=== PATIENT | female | born 1960 | race Caucasian/White ===

== ENCOUNTER 2017-10-24 14:28 | Emergency (ER) | payer MEDICARE, OTHER ==
[~2017-10-24] VITALS: Ht 154.9 cm; Wt 100.0 kg
[~2017-10-24 14:28] MED LIST: ADVAI100I PO; ALBU8I INH; CEPH500C3 PO; CETI5SOL PO; DUONI NEB; MONT10TA2 PO; OMEP40CA2 PO; PRAV10 PO; SPIRCAP INH; XANA1TAB PO
[2017-10-24 14:44] VITALS: BP 149/71; PULSE 66; RESP 18; TEMP 97.9; O2SAT 95
[2017-10-24] MEDS ORDERED: DIFL100T PO (15:05)
[2017-10-24] MEDS ORDERED: PRAV10TA PO (15:05)
[2017-10-24] MEDS ORDERED: FLUT1SPR5 EACH NARE (15:05)
[2017-10-24] MEDS ORDERED: ADVA100A INH (15:05)
[2017-10-24] MEDS ORDERED: LORA-400 PO (15:05)
[2017-10-24] MEDS ORDERED: ZITH250T PO (15:05)
[2017-10-24] MEDS ORDERED: MEDR4PAK PO (15:05)
[2017-10-24] MEDS ORDERED: SPIRCAP INH (15:05)
[2017-10-24] MEDS ORDERED: BENZ100 PO (15:54)
[2017-10-24] MEDS ORDERED: HUMIBIDDM PO (15:54)
--- NOTE | 2017-10-24 15:54 | PD ---
HPI Chief Complaint: Cold / Flu Symptoms Time Seen by Provider: 15:25 Travel History International Travel<30 days: No Contact w/Intl Traveler<30days: No Traveled to known affect area: No History of Present Illness HPI 57-year-old female presents emergency department for evaluation of cough and congestion for the past 2 weeks. Patient states that she recently finished a course of steroids azithromycin for bronchitis, she states that the iOmando is the only thing that has worked for her in the past. Denies any fevers denies any shortness of breath or chest pain. States symptoms have been stable but she coughed up a large chunk of mucus just before I saw her and states that she had felt a little bit better. Symptoms are mild, for the past 2 weeks, waxing and waning, context a smoker PFSH Past Medical History Cancer: No Cardiovascular Problems: No High Cholesterol: Yes COPD: Yes Diabetes: No Diminished Hearing: No Endocrine: No Genitourinary: No (URGENCY) Hepatitis: No Hiatal Hernia: No Immune Disorder: No Musculoskeletal: No Neurologic: No Psychiatric: No Respiratory: Yes (COPD) Thyroid Disease: No Influenza Vaccination: Yes ?: Not Menopausal: Yes : 2 Para: 2 Tubal Ligation: Yes Past Surgical History Abdominal Surgery: No AICD: No Cardiac Surgery: No Section: Yes Ear Surgery: No Endocrine Surgery: No Eye Surgery: No Genitourinary Surgery: Yes (C SECTION X2) Gynecologic Surgery: Yes (C-SECTIONS X2) Joint Replacement: No Oral Surgery: No Pacemaker: No Thoracic Surgery: No Other Surgery: Yes Social History Alcohol Use: No Tobacco Use: Yes (2ppd) Substance Use: Yes (marijuana) Allergies-Medications (Allergen,Severity, Reaction): Coded Allergies: No Known Allergies (Unverified Adverse Reaction, Unknown, 10/24/17) Reported Meds & Prescriptions Reported Meds & Active Scripts Active Tessalon Perles (Benzonatate) 100 Mg Cap 100 Mg PO TID PRN Mucinex DM (Dextromethorphan-Guaifenesin) 30-600 Mg Tab 1 Tab PO BID PRN Reported Pravastatin 10 Mg Tab 10 Mg PO DAILY Advair Diskus Inh (Fluticasone-Salmeterol Inh) 100-50 Mcg/Blist Aer 1 Puff INH BID Rinse mouth after use. Spiriva Handihaler (Tiotropium Inh) 18 Mcg Cap 18 Mcg INH DAILY 1 capsule = 18 mcg Claritin-D 24 HR (Loratadine-Pseudoephedrine 24 HR) 10-240 Mg Tab 1 Tab PO DAILY Flonase Nasal [place] (Fluticasone Nasal [place]) 50 Mcg/Act [place] 100 Mcg EACH NARE BID Diflucan (Fluconazole) 100 Mg Tab 100 Mg PO ONCE Medrol Dosepak (Methylprednisolone) 4 Mg Dspk 4 Mg PO DIRECTED Per Pharmacist direction Zithromax (Azithromycin) 250 Mg Tab 250 Mg PO DIRECTED Take 2 tabs (500 mg) on day 1 then 1 tab daily x 4 days. Review of Systems Except as stated in HPI: all other systems reviewed are Neg Physical Exam Narrative GENERAL: Well-nourished, well-developed patient. SKIN: Focused skin assessment warm/dry. HEAD: Normocephalic. EYES: No scleral icterus. No injection or drainage. ENT: TMs clear bilaterally, oropharynx clear moist NECK: Supple, trachea midline. No JVD or lymphadenopathy. CARDIOVASCULAR: Regular rate and rhythm without murmurs, gallops, or rubs. RESPIRATORY: Breath sounds equal bilaterally. No accessory muscle use. GASTROINTESTINAL: Abdomen soft, non-tender, nondistended. MUSCULOSKELETAL: No cyanosis, or edema. BACK: Nontender without obvious deformity. No CVA tenderness. Data Data Last Documented VS Vital Signs Date Time Temp Pulse Resp B/P (MAP) Pulse Ox O2 Delivery O2 Flow Rate FiO2 10/24/17 16:33 70 16 100 10/24/17 14:44 97.9 149/71 (97) Orders Orders Ed Discharge Order (10/24/17 15:54) MDM Medical Decision Making Medical Screen Exam Complete: Yes Emergency Medical Condition: Yes Differential Diagnosis Bronchitis, pneumonia unlikely, URI Narrative Course Patient room to the emergency department. She appears well and in obvious distress. Symptomatic management return to criteria smoking cessation and follow-up with a primary care physician were all discussed Diagnosis Primary Impression: Cough Med/Other Pt SpecificInfo: Prescription(s) given Scripts Benzonatate (Tessalon Perles) 100 Mg Cap 100 MG PO TID Y for COUGH, #20 CAP 0 Refills Prov: Marvin Mejia MD 10/24/17 Dextromethorphan-Guaifenesin (Mucinex DM) 30-600 Mg Tab 1 TAB PO BID Y for CHEST CONGESTION AND/OR COUGH, #30 TAB 0 Refills Prov: Marvin Mejia MD 10/24/17 Disposition: 01 DISCHARGE HOME Condition: Stable Marvin Mejia MD Oct 24, 2017 15:54
== END 2017-10-24 16:33 | disposition home or self-care (01) ==
LOC: PHEFT 14:28
DX: J44.9 Chronic obstructive pulmonary disease, unspecified (principal); E78.00 Pure hypercholesterolemia, unspecified; F17.210 Nicotine dependence, cigarettes, uncomplicated; Z79.899 Other long term (current) drug therapy
CPT/HCPCS: 99283

== ENCOUNTER 2018-01-09 20:21 | Inpatient (IN) | payer MEDICARE, OTHER ==
[2018-01-09] VITALS (14 sets, daily range): BP systolic 139–171; BP diastolic 74–97; PULSE 120–132; RESP 30–34; TEMP 98.4; O2SAT 56–100
[~2018-01-09] VITALS: Ht 157.5 cm; Wt 94.9 kg
[~2018-01-09 20:21] MED LIST changes: +ADVA100A INH; -ADVAI100I PO; -ALBU8I INH; +BENZ100 PO; -CEPH500C3 PO; -CETI5SOL PO; +DIFL100T PO; -DUONI NEB; +FLUT1SPR5 EACH NARE; +HUMIBIDDM PO; +LORA-400 PO; +MEDR4PAK PO; -MONT10TA2 PO; -OMEP40CA2 PO; -PRAV10 PO; +PRAV10TA PO; -XANA1TAB PO; +ZITH250T PO
[2018-01-09] MEDS ORDERED: ALPR1TAB3 PO (20:38)
[2018-01-09] MEDS: RESP: ALBUTEROL 2.5 MG/IPRATROPIUM 0.5 MG NEB (SCH) INH ×3 (20:41→21:23)
--- NOTE | 2018-01-09 20:42 | PD ---
HPI Chief Complaint: Respiratory Distress Time Seen by Provider: 20:32 Travel History International Travel<30 days: No Contact w/Intl Traveler<30days: No Traveled to known affect area: No History of Present Illness HPI The patient is a 57 year old female who presents to the [facility] emergency department with a history of cough, congestion that began on Monday. The patient reports that over the last 2 days she has had increasing shortness of breath with more frequent use of her rescue inhaler and nebulizer machine. The patient has had a subjective fever, and her cough became productive of yellow sputum earlier today. She reports that she quit smoking on Monday. The patient reports that she does have a history of COPD. The patient is followed by the visual stylist, Dr. Elliott. Her primary care physician is Dr. Redding. She reports that she was started on a Z-Dann by a walk-in clinic on Monday. She denies being on any oral steroids. The patient on arrival to the room after coming to the emergency department by private vehicle is noted to have room air saturations of 56% with a heart rate in the 130s that appears to be a sinus tachycardia on the monitor. She denies having any chest pain. On review of systems, the patient denies having any neck pain, abdominal pain, vomiting, diarrhea, urinary symptoms, or neurologic symptoms. [facility] Past Medical History Narrative Medical The patient's past medical history is significant for COPD, hyperlipidemia. Cancer: No Cardiovascular Problems: No High Cholesterol: Yes COPD: Yes Diabetes: No Diminished Hearing: No Endocrine: No Genitourinary: No (URGENCY) Hepatitis: No Hiatal Hernia: No Immune Disorder: No Musculoskeletal: No Neurologic: No Psychiatric: No Respiratory: Yes (COPD) Thyroid Disease: No Menopausal: Yes : 2 Para: 2 Tubal Ligation: Yes Past Surgical History Narrative Surgical The patient's past surgical history is significant for C-sections x2. Abdominal Surgery: No AICD: No Cardiac Surgery: No Section: Yes Ear Surgery: No Endocrine Surgery: No Eye Surgery: No Genitourinary Surgery: Yes (C SECTION X2) Gynecologic Surgery: Yes (C-SECTIONS X2) Joint Replacement: No Oral Surgery: No Pacemaker: No Thoracic Surgery: No Other Surgery: Yes Social History Alcohol Use: No Tobacco Use: No (quit smoking on Monday, 3 days ago.) Substance Use: Yes (marijuana) Allergies-Medications (Allergen,Severity, Reaction): Coded Allergies: No Known Allergies (Unverified Allergy, Unknown, 01/10/18) Reported Meds & Prescriptions Reported Meds & Active Scripts Active Mucinex DM (Dextromethorphan-Guaifenesin) 30-600 Mg Tab 1 Tab PO BID PRN Reported Alprazolam 1 Mg Tab 10 Mg PO QID PRN Pravastatin 10 Mg Tab 10 Mg PO DAILY Advair Diskus Inh (Fluticasone-Salmeterol Inh) 100-50 Mcg/Blist Aer 1 Puff INH BID Rinse mouth after use. Spiriva Handihaler (Tiotropium Inh) 18 Mcg Cap 18 Mcg INH DAILY 1 capsule = 18 mcg Claritin-D 24 HR (Loratadine-Pseudoephedrine 24 HR) 10-240 Mg Tab 1 Tab PO DAILY Flonase Nasal [place] (Fluticasone Nasal [place]) 50 Mcg/Act [place] 100 Mcg EACH NARE BID Zithromax (Azithromycin) 250 Mg Tab 250 Mg PO DIRECTED Take 2 tabs (500 mg) on day 1 then 1 tab daily x 4 days. Review of Systems Except as stated in HPI: all other systems reviewed are Neg General / Constitutional: Positive: Fever, Chills Eyes: No: Visual changes HENT: Positive: Rhinorrhea, Congestion, No: Headaches Cardiovascular: Positive: Dyspnea on exertion, No: Chest Pain or Discomfort Respiratory: Positive: Cough, Shortness of Breath, Wheezing Gastrointestinal: No: Nausea, Vomiting, Diarrhea, Abdominal Pain Genitourinary: No: Dysuria Musculoskeletal: No: Pain Skin: No Rash Neurologic: No: Weakness Psychiatric: No: Depression Endocrine: No: Polydipsia Hematologic/Lymphatic: No: Easy Bruising Physical Exam Narrative General: The patient is a well-developed well-nourished female who arrives short of breath with accessory muscle use noted, conversational dyspnea noted, tripoding noted. The patient has already been started on a nonrebreather mask for hypoxia on room air with an O2 saturation on room air at 56%. Head and Neck exam: Head is normocephalic atraumatic. Eyes: EOMI, pupils are equal round and reactive to light. Nose: Midline septum with pink mucous membranes Mouth: Dentition unremarkable. Moist mucus membranes. Posterior oropharynx is not erythematous. No tonsillar hypertrophy. Uvula midline. Airway patent. Neck: No palpable lymphadenopathy. No nuchal rigidity. No thyromegaly. Cardiovascular: Sinus tachycardia in the 1 teens to 120 without murmurs, gallops, or rubs. No pulse deficit to the extremities on simultaneous auscultation and palpation of her radial artery. Lungs: Decreased air movement bilaterally with expiratory wheezes noted and prolonged expiratory phase of breathing. The patient has accessory muscle use noted, tripoding, no paroxysmal abdominal breathing. The patient has scattered rhonchi with frequent coughing noted. No crackles audible. Decreased breath sounds in bilateral lung bases due to poor air movement. Abdomen: Soft, without tenderness to palpation in all 4 quadrants of the abdomen. No guarding, rebound, or rigidity. Normal bowel sounds are audible. No tenderness on palpation of McBurney's point. Negative Espinoza sign. Extremities: No clubbing, cyanosis, or edema. 2+ pulses in all 4 extremities. No calf tenderness on palpation peer Back: No costovertebral angle tenderness to palpation. Neurologic Exam: Grossly nonfocal. Skin Exam: No rash noted. Intact skin that is warm and dry. Data Data Last Documented VS Vital Signs Date Time Temp Pulse Resp B/P (MAP) Pulse Ox O2 Delivery O2 Flow Rate FiO2 01/09/18 22:50 100 Non-Rebreather 15.00 01/09/18 22:09 50 01/09/18 22:00 130 32 01/09/18 20:30 98.4 Orders Orders Complete Blood Count With Diff (01/09/18 20:32) Comprehensive Metabolic Panel (01/09/18 20:32) B-Type Natriuretic Peptide (01/09/18 20:32) D-Dimer (01/09/18 20:32) Act Partial Throm Time (Ptt) (01/09/18 20:32) Prothrombin Time / Inr (Pt) (01/09/18 20:32) Magnesium (Mg) (01/09/18 20:32) Ckmb (Isoenzyme) Profile (01/09/18 20:32) Troponin I (01/09/18 20:32) Urinalysis - C+S If Indicated (01/09/18 20:32) Influenzae A/B Antigen (01/09/18 20:32) Blood Culture (01/09/18 20:32) Iv Access Insert/Monitor (01/09/18 20:32) Electrocardiogram (01/09/18 20:32) Ecg Monitoring (01/09/18 20:32) Oximetry (01/09/18 20:32) Oxygen Administration (01/09/18 20:32) Chest, Single Ap (01/09/18 20:32) Sodium Chloride 0.9% Flush (Ns Flush) (01/09/18 20:45) Methylprednisolone So Succ Inj (Solumedr (01/09/18 20:45) Albuterol-Ipratropium Neb (Duoneb Neb) (01/09/18 20:45) Resp Bipap / Cpap Non Invas Vt (01/09/18 ) Albuterol-Ipratropium Neb (Duoneb Neb) (01/09/18 21:30) Levofloxacin 750 Mg Premix Inj (Levaquin (01/09/18 21:30) Lactic Acid Sepsis Protocol (01/09/18 21:19) Sodium Chlorid 0.9% 500 Ml Inj (Ns 500 M (01/09/18 21:30) Lorazepam Inj (Ativan Inj) (01/09/18 21:30) CKMB (01/09/18 20:30) CKMB% (01/09/18 20:30) Arterial Blood Gas (Abg) (01/09/18 21:49) Ct Pulmonary Angiogram (01/09/18 22:29) Iohexol 350 Inj (Omnipaque 350 Inj) (01/09/18 23:10) Admit Order (Ed Use Only) (01/09/18 23:17) Labs Laboratory Tests Test 01/09/18 20:30 01/09/18 21:35 01/09/18 21:49 White Blood Count 20.3 TH/MM3 Red Blood Count 4.44 MIL/MM3 Hemoglobin 13.6 GM/DL Hematocrit 40.1 % Mean Corpuscular Volume 90.3 FL Mean Corpuscular Hemoglobin 30.6 PG Mean Corpuscular Hemoglobin Concent 33.8 % Red Cell Distribution Width 13.1 % Platelet Count 378 TH/MM3 Mean Platelet Volume 8.6 FL Neutrophils (%) (Auto) 78.6 % Lymphocytes (%) (Auto) 8.8 % Monocytes (%) (Auto) 11.0 % Eosinophils (%) (Auto) 1.0 % Basophils (%) (Auto) 0.6 % Neutrophils # (Auto) 15.9 TH/MM3 Lymphocytes # (Auto) 1.8 TH/MM3 Monocytes # (Auto) 2.2 TH/MM3 Eosinophils # (Auto) 0.2 TH/MM3 Basophils # (Auto) 0.1 TH/MM3 CBC Comment AUTO DIFF Differential Total Cells Counted 100 Neutrophils % (Manual) 76 % Band Neutrophils % 2 % Lymphocytes % 11 % Monocytes % 9 % Eosinophils % 1 % Neutrophils # (Manual) 16.0 TH/MM3 Metamyelocytes 1 % Differential Comment FINAL DIFF MANUAL Platelet Estimate NORMAL Platelet Morphology Comment NORMAL Basophilic Stippling FAINT Prothrombin Time 10.3 SEC Prothromb Time International Ratio 1.0 RATIO Activated Partial Thromboplast Time 34.1 SEC D-Dimer Quantitative (PE/DVT) 0.94 MG/L FEU Blood Urea Nitrogen 7 MG/DL Creatinine 0.75 MG/DL Random Glucose 89 MG/DL Total Protein 8.2 GM/DL Albumin 3.4 GM/DL Calcium Level 9.1 MG/DL Magnesium Level 2.4 MG/DL Alkaline Phosphatase 155 U/L Aspartate Amino Transf (AST/SGOT) 55 U/L Alanine Aminotransferase (ALT/SGPT) 52 U/L Total Bilirubin 1.1 MG/DL Sodium Level 141 MEQ/L Potassium Level 3.4 MEQ/L Chloride Level 105 MEQ/L Carbon Dioxide Level 25.8 MEQ/L Anion Gap 10 MEQ/L Estimat Glomerular Filtration Rate 80 ML/MIN Total Creatine Kinase 412 U/L Creatine Kinase MB 5.0 NG/ML Creatine Kinase MB % 1.2 % Troponin I LESS THAN 0.02 NG/ML B-Type Natriuretic Peptide 8 PG/ML Lactic Acid Level 0.9 mmol/L Blood Gas Puncture Site RT RADIAL Blood Gas Patient Temperature 98.6 Blood Gas HCO3 24 mmol/L Blood Gas Base Excess -2.2 mmol/L Blood Gas Oxygen Saturation 96 % Arterial Blood pH 7.26 Arterial Blood Partial Pressure CO2 55 mmHg Arterial Blood Partial Pressure O2 99 mmHG Arterial Blood Oxygen Content 17.5 Vol % Arterial Blood Carboxyhemoglobin 1.0 % Arterial Blood Methemoglobin 0.6 % Blood Gas Hemoglobin 12.9 G/DL Oxygen Delivery Device BiPAP Blood Gas Ventilator Setting IPAP15 / EPAP5 Blood Gas Inspired Oxygen 60 % MDM Medical Decision Making Medical Screen Exam Complete: Yes Emergency Medical Condition: Yes Medical Record Reviewed: Yes Interpretation(s) Last Impressions CT Angiography 01/09/182228 Signed Impressions: Service Date/Time: Tuesday, January 09, 2018 23:05 - CONCLUSION: Diffuse bilateral reticular nodular infiltrates, likely infectious or inflammatory. No lobar consolidation. No pulmonary embolus. Umer Clark MD Chest X-Ray 01/09/[id number] Signed Impressions: Service Date/Time: Tuesday, January 09, 2018 20:44 - CONCLUSION: No acute disease. Raffy Shepherd MD Differential Diagnosis COPD exacerbation, versus pneumonia, versus influenza, versus new onset congestive heart failure, versus acute coronary syndrome Narrative Course During the course of the patient's emergency department visit, the patient's history, examination, and differential diagnosis were reviewed with the patient. The patient was placed on a personnel monitor with oximetry and frequent blood pressure monitoring. The patient had IV access obtained and blood work sent for analysis. The patient was taken off the nonrebreather mask after her O2 saturation improved to 96-97% and instead placed on a DuoNeb 3 by respiratory therapy. The patient had a EKG done on arrival that shows a sinus tachycardia rate of 126, QRS duration is 92 ms, QTC [address]-T wave abnormalities are noted. No acute ST segment elevation. The patient was initially provided Solu-Medrol 125 mg IV. The patient continued to be short of breath with increased work of breathing was started on BiPAP. The patient was continued on nebulizer treatments. The patient's chest x-ray showed no acute cardiopulmonary abnormality. The patient was given Levaquin 750 IV 1. The patient was started on normal saline IV fluid bolus. The patient has a history of anxiety and on BiPAP became increasingly anxious. She is on large doses of Xanax for anxiety, therefore the patient was given Ativan IV for relief of acute anxiety. The patient's studies were reviewed and remarkable for a white count of 20.3, hemoglobin 13.6, platelets 378 with 76 neutrophils, 2 bands, CMP is remarkable for potassium 3.4, GFR of 80, total bilirubin 1.1, AST 55, alk phos 155, CPK 412 with a normal MB percent, troponin I less than 0.02, BNP is 8, lactic acid 0.9, PT PTT unremarkable, d-dimer 0.94. CTA to rule out PE was ordered. ABG reveals a pH of 7.26, PCO2 55, PO2 99, bicarb 24 on BiPAP. The patient's FiO2 of 60% will be weaned as tolerated to maintain O2 sats greater than or equal to 90%. CTA to rule out PE shows diffuse bilateral reticular nodular infiltrates likely infectious or inflammatory. No lobar consolidation. No pulmonary embolism. The patient's results were discussed with the patient, including the plan of care. I explained that further testing and/ or monitoring is indicated based on the patient's history, examination, and/ or laboratory findings. Therefore, I recommended admission for additional evaluation. The patient expressed understanding and was agreeable with this plan. The patient was admitted to the hospital in guarded condition and sent to a bed under the care of the [facility]. Critical Care Narrative Aggregate critical care time was 32 minutes. Time to perform other separately billable procedures was not included in the critical care time. My time did not include minutes spent treating any other patients simultaneously or on activities that did not directly contribute to the patient's treatment. The services I provided to this patient were to treat and/or prevent clinically significant deterioration that could result in: Respiratory failure, versus fluid overload from crystalloid resuscitation, versus cardiovascular collapse from sepsis I provided critical care services requiring my management, as noted below: Chart data review, documentation time, medication orders and management, vital sign assessments/reviewing monitor data, ordering and reviewing lab tests, ordering and interpreting/reviewing x-rays and diagnostic studies, care of the patient and discussion of the patient with the admitting physicians. Sepsis Criteria SIRS Criteria (2 or more): Heart rate over 90, RR > 20 or PaCO2 < 32, WBC > 30185, < 4000 or > 10% bands Sepsis Criteria (SIRS+source): Infect source susp/known Criteria Outcome: Meets SIRS criteria, Meets sepsis criteria Physician Communication Physician Communication The patient's case including history, pertinent physical examination findings, and laboratory studies were discussed with Dr. Aguilera. It was agreed that the patient would be admitted to the [facility] service. Diagnosis Primary Impression: COPD exacerbation Additional Impressions: Hypoxemia Sepsis Qualified Codes: A41.9 - Sepsis, unspecified organism Admitting Information Admitting Physician Requests: it Colleen Germain MD Jan 09, 2018 20:42
[2018-01-09] MEDS ORDERED: SODIUM CHLORIDE 0.9% FLUSH 10 ML FLUSH IVF PRN (20:45)
[2018-01-09] MEDS ORDERED: methylPREDNISolone SOD SUCC 125 MG/2 ML VIAL IV PUSH ONE (20:45)
--- NOTE | 2018-01-09 21:03 | RADRPT ---
EXAM DATE/TIME: 01/09/2018 20:44 [facility] COMPARISON: CHEST SINGLE AP, April 26, 2016, 16:40. INDICATIONS : Shortness of breath. MEDICAL HISTORY : Asthma. Chronic Obstructive Pulmonary Disease. Smoker. SURGICAL HISTORY : None. ENCOUNTER: Initial ACUITY: 1 day PAIN SCORE: 0/10 LOCATION: Bilateral chest FINDINGS: Retained artifact. A single view of the chest demonstrates the lungs to be symmetrically aerated with out evidence of mass, infiltrate or effusion. The cardiomediastinal contours are unremarkable. Osse ous structures are intact. CONCLUSION: No acute disease. Raffy Shepherd MD on January 09, 2018 at 21:01 Board Certified Radiologist. This report was verified electronically.
[2018-01-09 21:30] LABS: AUTOMATED NEUTROPHIL # 15.9 TH/MM3 (1.8-7.7); BASOPHIL # 0.1 TH/MM3 (0-0.2); BASOPHIL % 0.6 % (0.0-2.0); EOSINOPHIL # 0.2 TH/MM3 (0-0.4); HEMATOCRIT 40.1 % (35.0-46.0); HEMOGLOBIN 13.6 GM/DL (11.6-15.3); LYMPH % 8.8 % (9.0-44.0); LYMPHOCYTE # 1.8 TH/MM3 (1.0-4.8); MEAN CELL VOLUME 90.3 FL (80.0-100.0); MEAN CORPUSCULAR HEMOGLOBIN 30.6 PG (27.0-34.0); MEAN CORPUSCULAR HGB CONC 33.8 % (32.0-36.0); MEAN PLATELET VOLUME 8.6 FL (7.0-11.0); MONOCYTE # 2.2 TH/MM3 (0-0.9); NEUT % 78.6 % (16.0-70.0); PLATELET COUNT 378 TH/MM3 (150-450); RED BLOOD COUNT 4.44 MIL/MM3 (4.00-5.30); RED CELL DISTRIBUTION WIDTH 13.1 % (11.6-17.2); WHITE BLOOD COUNT 20.3 TH/MM3 (4.0-11.0)
[2018-01-09] MEDS ORDERED: LEVOFLOXACIN 750 MG PREMIX INJ 150 ML IV ONE (21:30)
[2018-01-09] MEDS ORDERED: SODIUM CHLORID 0.9% 500 ML INJ 500 ML IV ONE (21:30)
[2018-01-09] MEDS ORDERED: LORazepam 2 MG/ML VIAL IV PUSH ONE (21:30)
[2018-01-09 21:52] LABS: ALBUMIN 3.4 GM/DL (3.4-5.0); AST (GOT) 55 U/L (15-37); BICARBONATE 25.8 MEQ/L (21.0-32.0); BLOOD UREA NITROGEN 7 MG/DL (7-18); CALCIUM 9.1 MG/DL (8.5-10.1); CHLORIDE 105 MEQ/L (98-107); CREATININE 0.75 MG/DL (0.50-1.00); GLOMERULAR FILTRATION RATE 80 ML/MIN (>89); GLUCOSE,RANDOM 89 MG/DL (74-106); MAGNESIUM 2.4 MG/DL (1.5-2.5); SODIUM (NA) 141 MEQ/L (136-145)
[2018-01-09 21:53] LABS: ALT (GPT) 52 U/L (10-53)
[2018-01-09 21:57] LABS: ALKALINE PHOSPHATASE 155 U/L (45-117); TOTAL BILIRUBIN ADULT 1.1 MG/DL (0.2-1.0); TOTAL PROTEIN 8.2 GM/DL (6.4-8.2); TROPONIN I LESS THAN 0.02 NG/ML (0.02-0.05)
[2018-01-09 22:02] LABS: PROTHROMBIN TIME - PATIENT 10.3 SEC (9.8-11.6)
[2018-01-09 22:06] LABS: D-DIMER 0.94 MG/L FEU (0.00-0.50)
[2018-01-09 22:44] LABS: BANDS 2 % (0-6); LYMPHOCYTES 11 % (9-44); METAMYELOCYTES 1 % (0-1); MONOCYTES 9 % (0-8); POLYS (SEG NEUTROPHILS) 76 % (16-70)
[2018-01-09] MEDS ORDERED: IOHEXOL 350 MG/ML 10 ML VIAL (for RAD DIAG) IVCONTRAST ONE (23:10)
--- NOTE | 2018-01-09 23:25 | RADRPT ---
EXAM DATE/TIME: 01/09/2018 23:05 [facility] COMPARISON: No previous studies available for comparison. INDICATIONS : Shortness of breath. IV CONTRAST: 75 cc Omnipaque 350 (iohexol) IV RADIATION DOSE: 10.74 CTDIvol (mGy) MEDICAL HISTORY : Chronic obstructive pulmonary disease. SURGICAL HISTORY : Tubal ligation. ENCOUNTER: Initial ACUITY: 1 day PAIN SCALE: 4/10 LOCATION: Bilateral chest TECHNIQUE: Volumetric scanning of the chest was performed using a pulmonary embolism protocol MIP images were re constructed. Using automated exposure control and adjustment of the mA and/or kV according to patien t size, radiation dose was kept as low as reasonably achievable to obtain optimal diagnostic quality images. DICOM format image data is available electronically for review and comparison. Follow-up recommendations for detected pulmonary nodules are based at a minimum on nodule size and pa tient risk factors according to Fleischner Society Guidelines. FINDINGS: PULMONARY ARTERIES: No filling defects are seen in the pulmonary arteries through the segmental level. LUNGS: There is diffuse reticular nodular infiltrate of both lungs. Individual nodules are up to 7 mm but ge nerally 2-5 mm. There is interlobular septal thickening. No confluent consolidation. No pleural effus ion or pneumothorax. PLEURAE: There is no pleural thickening or pleural effusion. MEDIASTINUM: There is good visualization of the great vessels of the middle mediastinum. No evidence of mediastin al or hilar adenopathy/mass. MUSCULOSKELETAL: Within normal limits for patient age. MISCELLANEOUS: The visualized upper abdominal organs demonstrate no acute abnormality. CONCLUSION: Diffuse bilateral reticular nodular infiltrates, likely infectious or inflammatory. No lobar consolid ation. No pulmonary embolus. Umer Clark MD on January 09, 2018 at 23:22 Board Certified Radiologist. This report was verified electronically.
[2018-01-10] VITALS (22 sets, daily range): BP systolic 125–146; BP diastolic 56–90; PULSE 87–111; RESP 19–30; TEMP 97.4–98.8; O2SAT 91–99
[2018-01-10] MEDS ORDERED: SODIUM CHLORIDE 0.9% FLUSH 10 ML FLUSH IV FLUSH PRN (01:00)
[2018-01-10] MEDS ORDERED: RESP: ALBUTEROL 2.5 MG/3 ML NEB (PRN) INH (01:00)
[2018-01-10] MEDS: methylPREDNISolone SOD SUCC 125 MG/2 ML VIAL IV PUSH SCH ×4 (01:39→19:25)
[2018-01-10] MEDS: LORazepam 2 MG/ML VIAL IV PUSH PRN ×2 (01:43→20:42)
[2018-01-10] MEDS ORDERED: POTASSIUM CHLORIDE 20 MEQ CONTROLLED RELEASE TAB PO ONE ×2 (01:45→14:30)
--- NOTE | 2018-01-10 01:52 | HHI.HP ---
HPI Service [facility] Primary Care Physician Jani Jean M.D. Admission Diagnosis Copd Exacerbation, hypoxemia Diagnoses: Travel History International Travel<30 Days: No Contact w/Intl Traveler <30 Da: No Traveled to Known Affected Are: No History of Present Illness 57-year-old female with a past medical history significant for COPD, anxiety and hyperlipidemia presents to the emergency department for evaluation of shortness of breath. The patient reports her shortness of breath started on Monday and she called her slot router, Dr. Elliott who prescribed her a Z- Dann. The patient reports increased cough, fever, chills. She states her shortness of breath continued to worsen. She came to the emergency department for further evaluation. She has labored respirations. Currently refusing BiPAP. Denies chest pain. No nausea/vomiting/diarrhea. No abdominal pain. No weakness/fatigue. No lateralizing signs/symptoms. Review of Systems Except as stated in HPI: all other systems reviewed are Neg Past Family Social History Past Medical History Anxiety COPD Hyperlipidemia Past Surgical History Cholecystectomy 2 Reported Medications Reported Meds & Active Scripts Active Mucinex DM (Dextromethorphan-Guaifenesin) 30-600 Mg Tab 1 Tab PO BID PRN Reported Alprazolam 1 Mg Tab 10 Mg PO QID PRN Pravastatin 10 Mg Tab 10 Mg PO DAILY Advair Diskus Inh (Fluticasone-Salmeterol Inh) 100-50 Mcg/Blist Aer 1 Puff INH BID Rinse mouth after use. Spiriva Handihaler (Tiotropium Inh) 18 Mcg Cap 18 Mcg INH DAILY 1 capsule = 18 mcg Claritin-D 24 HR (Loratadine-Pseudoephedrine 24 HR) 10-240 Mg Tab 1 Tab PO DAILY Flonase Nasal [place] (Fluticasone Nasal [place]) 50 Mcg/Act [place] 100 Mcg EACH NARE BID Zithromax (Azithromycin) 250 Mg Tab 250 Mg PO DIRECTED Take 2 tabs (500 mg) on day 1 then 1 tab daily x 4 days. Allergies: Coded Allergies: No Known Allergies (Unverified Allergy, Unknown, 01/10/18) Family History Father with CAD Social History Smokes approximately 2 packs per day. Denies alcohol and illicit drugs. Physical Exam Vital Signs Vital Signs Date Time Temp Pulse Resp B/P (MAP) Pulse Ox O2 Delivery O2 Flow Rate FiO2 01/10/18 01:32 103 19 142/90 (107) 95 BiPAP 01/10/18 01:05 98 45 01/10/18 00:25 98 Non-Rebreather 15.00 01/10/18 00:23 98 Non-Rebreather 15.00 01/09/18 23:30 120 30 142/85 (104) 94 BiPAP 50 01/09/18 23:25 98 BiPAP 50 01/09/18 22:50 100 Non-Rebreather 15.00 01/09/18 22:09 93 BiPAP 50 01/09/18 22:07 97 50 01/09/18 22:00 130 32 154/74 (100) 97 BiPAP 60 01/09/18 21:20 94 60 01/09/18 21:17 98 BiPAP 60 01/09/18 21:10 96 BiPAP 60 01/09/18 21:09 96 60 01/09/18 21:00 121 32 171/97 (121) 95 Nasal Cannula 5.00 01/09/18 20:35 98 Non-Rebreather 15.00 01/09/18 20:32 100 Non-Rebreather 15.00 01/09/18 20:31 99 Non-Rebreather 15.00 01/09/18 20:30 98.4 96 Non-Rebreather 15.00 01/09/18 20:28 132 34 139/85 (103) 56 Physical Exam GENERAL: female sitting up in bed SKIN: No rashes, ecchymoses or lesions. Cool and dry. HEAD: Atraumatic. Normocephalic. No temporal or scalp tenderness. EYES: Pupils equal round and reactive. Extraocular motions intact. No scleral icterus. No injection or drainage. ENT: Nose without bleeding, purulent drainage or septal hematoma. Throat without erythema, tonsillar hypertrophy or exudate. Uvula midline. Airway patent. NECK: Trachea midline. No JVD or lymphadenopathy. Supple, nontender, no meningeal signs. CARDIOVASCULAR: Regular rate and rhythm without murmurs, gallops, or rubs. RESPIRATORY: Poor air movement. Bilateral wheezes. Use of accessory muscles. GASTROINTESTINAL: Abdomen soft, non-tender, nondistended. No hepato-splenomegaly , or palpable masses. No guarding. MUSCULOSKELETAL: Extremities without clubbing, cyanosis, or edema. No joint tenderness, effusion, or edema noted. No calf tenderness. NEUROLOGICAL: Awake and alert. Cranial nerves II through XII intact. Motor and sensory grossly within normal limits. Normal speech. Laboratory Laboratory Tests Test 01/09/18 20:30 01/09/18 21:35 01/09/18 21:49 White Blood Count 20.3 Red Blood Count 4.44 Hemoglobin 13.6 Hematocrit 40.1 Mean Corpuscular Volume 90.3 Mean Corpuscular Hemoglobin 30.6 Mean Corpuscular Hemoglobin Concent 33.8 Red Cell Distribution Width 13.1 Platelet Count 378 Mean Platelet Volume 8.6 Neutrophils (%) (Auto) 78.6 Lymphocytes (%) (Auto) 8.8 Monocytes (%) (Auto) 11.0 Eosinophils (%) (Auto) 1.0 Basophils (%) (Auto) 0.6 Neutrophils # (Auto) 15.9 Lymphocytes # (Auto) 1.8 Monocytes # (Auto) 2.2 Eosinophils # (Auto) 0.2 Basophils # (Auto) 0.1 CBC Comment AUTO DIFF Differential Total Cells Counted 100 Neutrophils % (Manual) 76 Band Neutrophils % 2 Lymphocytes % 11 Monocytes % 9 Eosinophils % 1 Neutrophils # (Manual) 16.0 Metamyelocytes 1 Differential Comment FINAL DIFF MANUAL Platelet Estimate NORMAL Platelet Morphology Comment NORMAL Basophilic Stippling FAINT Prothrombin Time 10.3 Prothromb Time International Ratio 1.0 Activated Partial Thromboplast Time 34.1 D-Dimer Quantitative (PE/DVT) 0.94 Blood Urea Nitrogen 7 Creatinine 0.75 Random Glucose 89 Total Protein 8.2 Albumin 3.4 Calcium Level 9.1 Magnesium Level 2.4 Alkaline Phosphatase 155 Aspartate Amino Transf (AST/SGOT) 55 Alanine Aminotransferase (ALT/SGPT) 52 Total Bilirubin 1.1 Sodium Level 141 Potassium Level 3.4 Chloride Level 105 Carbon Dioxide Level 25.8 Anion Gap 10 Estimat Glomerular Filtration Rate 80 Total Creatine Kinase 412 Creatine Kinase MB 5.0 Creatine Kinase MB % 1.2 Troponin I LESS THAN 0.02 B-Type Natriuretic Peptide 8 Lactic Acid Level 0.9 Blood Gas Puncture Site RT RADIAL Blood Gas Patient Temperature 98.6 Blood Gas HCO3 24 Blood Gas Base Excess -2.2 Blood Gas Oxygen Saturation 96 Arterial Blood pH 7.26 Arterial Blood Partial Pressure CO2 55 Arterial Blood Partial Pressure O2 99 Arterial Blood Oxygen Content 17.5 Arterial Blood Carboxyhemoglobin 1.0 Arterial Blood Methemoglobin 0.6 Blood Gas Hemoglobin 12.9 Oxygen Delivery Device BiPAP Blood Gas Ventilator Setting IPAP15 / [id number] Blood Gas Inspired Oxygen 60 Date/Time Source Procedure Growth Status 01/09/18 20:50 Blood Peripheral Aerobic Blood Culture Pending Received 01/09/18 20:50 Blood Peripheral Anaerobic Blood Culture Pending Received Result Diagram: 01/09/18202901/09/182029 Caprini VTE Risk Assessment Caprini VTE Risk Assessment: No/Low Risk (score <= 1) Caprini Risk Assessment Model Point Value = 1 Point Value = 2 Point Value = 3 Point Value = 5 Age 41-60 Minor surgery BMI > 25 kg/m2 Swollen legs Varicose veins or History of unexplained or recurrent spontaneous Oral contraceptives or hormone replacement Sepsis (< 1 month) Serious lung disease, including pneumonia (< 1 month) Abnormal pulmonary function Acute myocardial infarction Congestive heart failure (< 1 month) History of inflammatory bowel disease Medical patient at bed rest Age 61-74 Arthroscopic surgery Major open surgery (> 45 min) Laparoscopic surgery (> 45 min) Malignancy Confined to bed (> 72 hours) Immobilizing plaster cast Central venous access Age >= 75 History of VTE Family history of VTE Factor V Leiden Prothrombin [id number] Lupus anticoagulant Anticardiolipin antibodies Elevated serum homocysteine Heparin-induced thrombocytopenia Other congenital or acquired thrombophilia Stroke (< 1 month) Elective arthroplasty Hip, pelvis, or leg fracture Acute spinal cord injury (< 1 month) Prophylaxis Regimen Total Risk Factor Score Risk Level Prophylaxis Regimen 0-1 Low Early ambulation 2 Moderate Order ONE of the following: *Sequential Compression Device (SCD) *Heparin 5000 units SQ BID 3-4 Higher Order ONE of the following medications: *Heparin 5000 units SQ TID *Enoxaparin/Lovenox 40 mg SQ daily (WT < 150 kg, CrCl > 30 mL/min) *Enoxaparin/Lovenox 30 mg SQ daily (WT < 150 kg, CrCl > 10-29 mL/min) *Enoxaparin/Lovenox 30 mg SQ BID (WT < 150 kg, CrCl > 30 mL/min) AND/OR *Sequential Compression Device (SCD) 5 or more Highest Order ONE of the following medications: *Heparin 5000 units SQ TID (Preferred with Epidurals) *Enoxaparin/Lovenox 40 mg SQ daily (WT < 150 kg, CrCl > 30 mL/min) *Enoxaparin/Lovenox 30 mg SQ daily (WT < 150 kg, CrCl > 10-29 mL/min) *Enoxaparin/Lovenox 30 mg SQ BID (WT < 150 kg, CrCl > 30 mL/min) AND *Sequential Compression Device (SCD) Assessment and Plan Assessment and Plan Assessment/plan: 1. COPD exacerbation/pneumonia CTA significant for diffuse infiltrates infectious versus inflammatory, personally reviewed ABG 7.2 / Levaquin -patient with increased sputum production and cough with fever/chills IV steroids Patient's slot router, Dr. Elliott consulted, appreciate recommendations Duo nebs Continue home inhalers BiPAP -wean as tolerated 2. Anxiety Ativan as needed 3. Hyperlipidemia Continue home statin FEN Heart healthy diet Electrolytes: monitor and replete prn, status post p.o. potassium Physician Certification 2 Midnight Certification Type: Admission for Inpatient Services Order for Inpatient Services The services are ordered in accordance with Medicare regulations or non- Medicare payer requirements, as applicable. In the case of services not specified as inpatient-only, they are appropriately provided as inpatient services in accordance with the 2-midnight benchmark. Estimated LOS (days): 2 2 days is the estimated time the patient will need to remain in the hospital, assuming treatment plan goals are met and no additional complications. Post-Hospital Plan: Not yet determined Richelle Aguilera MD Jan 10, 2018 01:52
[2018-01-10] MEDS: RESP: ALBUTEROL 2.5 MG/IPRATROPIUM 0.5 MG NEB (SCH) INH ×6 (03:43→23:38)
[2018-01-10] MEDS: TIOTROPIUM BROMIDE 18 MCG INH INH SCH (09:00)
[2018-01-10] MEDS: SODIUM CHLORIDE 0.9% FLUSH 10 ML FLUSH IV FLUSH SCH ×2 (09:00→20:43)
[2018-01-10] MEDS: BUDESONIDE-FORMOTEROL 80/4.5 MCG INHALER INH SCH ×2 (09:00→20:43)
[2018-01-10] MEDS ORDERED: NON-FORMULARY DRUG (Fluticasone-Salmeterol Inh (Advair Diskus Inh) 1 PUFF) INH SCH (09:00)
[2018-01-10] MEDS: PRAVASTATIN SOD 10 MG TAB PO SCH (09:00)
[2018-01-10] MEDS: PANTOPRAZOLE SOD 40 MG DELAYED RELEASE TAB PO SCH (14:30)
--- NOTE | 2018-01-10 14:30 | HHI.PR ---
Subjective Remarks 57-year-old female with a past medical history significant for COPD, anxiety and hyperlipidemia presents to the emergency department for evaluation of shortness of breath. The patient reports her shortness of breath started on Monday and she called her relief captain, Dr. Elliott who prescribed her a Z- Dann. The patient reports increased cough, fever, chills. She states her shortness of breath continued to worsen. She came to the emergency department for further evaluation. She has labored respirations. Currently refusing BiPAP. Denies chest pain. No nausea/vomiting/diarrhea. No abdominal pain. No weakness/fatigue. No lateralizing signs/symptoms. 01-10 PATIENT STILL SOB, STILL WHEEZING, STILL COUGHING MORE PRODUCTIVE SPUTUM ADD INCENTIVE SPIROMETRY, MUCINEX, LEVAQUIN, DUONEBS, ANTIBIOTICS AM LABS Objective Vitals Vital Signs Date Time Temp Pulse Resp B/P (MAP) Pulse Ox O2 Delivery O2 Flow Rate FiO2 01/10/18 10:24 90 28 127/56 (79) 92 Nasal Cannula 2.00 01/10/18 10:15 98.8 95 20 133/75 (94) 95 01/10/18 08:12 93 24 127/79 (95) 96 BiPAP 01/10/18 07:23 94 BiPAP 45 01/10/18 07:15 94 01/10/18 05:30 87 30 125/80 (95) 96 BiPAP 40 01/10/18 03:45 96 45 01/10/18 03:30 95 28 138/75 (96) 96 BiPAP 40 01/10/18 01:32 103 19 142/90 (107) 95 BiPAP 01/10/18 01:05 98 45 01/10/18 00:25 98 Non-Rebreather 15.00 01/10/18 00:23 98 Non-Rebreather 15.00 01/09/18 23:30 120 30 142/85 (104) 94 BiPAP 50 01/09/18 23:25 98 BiPAP 50 01/09/18 22:50 100 Non-Rebreather 15.00 01/09/18 22:09 93 BiPAP 50 01/09/18 22:07 97 50 01/09/18 22:00 130 32 154/74 (100) 97 BiPAP 60 01/09/18 21:20 94 60 18 21:17 98 BiPAP 60 01/09/18 21:10 96 BiPAP 60 01/09/18 21:09 96 60 01/09/18 21:00 121 32 171/97 (121) 95 Nasal Cannula 5.00 01/09/18 20:35 98 Non-Rebreather 15.00 01/09/18 20:32 100 Non-Rebreather 15.00 01/09/18 20:31 99 Non-Rebreather 15.00 01/09/18 20:30 98.4 96 Non-Rebreather 15.00 01/09/18 20:28 132 34 139/85 (103) 56 I/O 01/09/18 01/09/18 01/09/18 01/10/18 01/10/18 01/10/18 07:00 15:00 23:00 07:00 15:00 23:00 Intake Total 650 ml Balance 650 ml Intake IV Total 650 ml # Voids 2 1 Result Diagram: 01/09/18202901/09/182029 Other Results Laboratory Tests Test 01/09/18 20:30 01/09/18 21:35 01/09/18 21:49 01/10/18 05:50 White Blood Count 20.3 TH/MM3 Red Blood Count 4.44 MIL/MM3 Hemoglobin 13.6 GM/DL Hematocrit 40.1 % Mean Corpuscular Volume 90.3 FL Mean Corpuscular Hemoglobin 30.6 PG Mean Corpuscular Hemoglobin Concent 33.8 % Red Cell Distribution Width 13.1 % Platelet Count 378 TH/MM3 Mean Platelet Volume 8.6 FL Neutrophils (%) (Auto) 78.6 % Lymphocytes (%) (Auto) 8.8 % Monocytes (%) (Auto) 11.0 % Eosinophils (%) (Auto) 1.0 % Basophils (%) (Auto) 0.6 % Neutrophils # (Auto) 15.9 TH/MM3 Lymphocytes # (Auto) 1.8 TH/MM3 Monocytes # (Auto) 2.2 TH/MM3 Eosinophils # (Auto) 0.2 TH/MM3 Basophils # (Auto) 0.1 TH/MM3 CBC Comment AUTO DIFF Differential Total Cells Counted 100 Neutrophils % (Manual) 76 % Band Neutrophils % 2 % Lymphocytes % 11 % Monocytes % 9 % Eosinophils % 1 % Neutrophils # (Manual) 16.0 TH/MM3 Metamyelocytes 1 % Differential Comment FINAL DIFF MANUAL Platelet Estimate NORMAL Platelet Morphology Comment NORMAL Basophilic Stippling FAINT Prothrombin Time 10.3 SEC Prothromb Time International Ratio 1.0 RATIO Activated Partial Thromboplast Time 34.1 SEC D-Dimer Quantitative (PE/DVT) 0.94 MG/L FEU Blood Urea Nitrogen 7 MG/DL Creatinine 0.75 MG/DL Random Glucose 89 MG/DL Total Protein 8.2 GM/DL Albumin 3.4 GM/DL Calcium Level 9.1 MG/DL Magnesium Level 2.4 MG/DL Alkaline Phosphatase 155 U/L Aspartate Amino Transf (AST/SGOT) 55 U/L Alanine Aminotransferase (ALT/SGPT) 52 U/L Total Bilirubin 1.1 MG/DL Sodium Level 141 MEQ/L Potassium Level 3.4 MEQ/L Chloride Level 105 MEQ/L Carbon Dioxide Level 25.8 MEQ/L Anion Gap 10 MEQ/L Estimat Glomerular Filtration Rate 80 ML/MIN Total Creatine Kinase 412 U/L Creatine Kinase MB 5.0 NG/ML Creatine Kinase MB % 1.2 % Troponin I LESS THAN 0.02 NG/ML B-Type Natriuretic Peptide 8 PG/ML Lactic Acid Level 0.9 mmol/L Blood Gas Puncture Site RT RADIAL Blood Gas Patient Temperature 98.6 Blood Gas HCO3 24 mmol/L Blood Gas Base Excess -2.2 mmol/L Blood Gas Oxygen Saturation 96 % Arterial Blood pH 7.26 Arterial Blood Partial Pressure CO2 55 mmHg Arterial Blood Partial Pressure O2 99 mmHG Arterial Blood Oxygen Content 17.5 Vol % Arterial Blood Carboxyhemoglobin 1.0 % Arterial Blood Methemoglobin 0.6 % Blood Gas Hemoglobin 12.9 G/DL Oxygen Delivery Device BiPAP Blood Gas Ventilator Setting IPAP15 / EPAP5 Blood Gas Inspired Oxygen 60 % Imaging Last Impressions CT Angiography 01/09/182228 Signed Impressions: Service Date/Time: Tuesday, January 09, 2018 23:05 - CONCLUSION: Diffuse bilateral reticular nodular infiltrates, likely infectious or inflammatory. No lobar consolidation. No pulmonary embolus. Umer Clark MD Chest X-Ray 01/09/182031 Signed Impressions: Service Date/Time: Tuesday, January 09, 2018 20:44 - CONCLUSION: No acute disease. Raffy Shepherd MD Objective Remarks GENERAL: Awake alert oriented 3 talkative and cooperative appears to be in moderate distress still wheezing and coughing SKIN: Warm and dry. HEAD: Atraumatic. Normocephalic. EYES: Pupils equal and round. No scleral icterus. No injection or drainage. Extraocular muscles intact ENT: No nasal bleeding or discharge. Mucous membranes pink and moist. Tongue is midline NECK: Trachea midline. No JVD. Supple CARDIOVASCULAR: Regular rate and rhythm. S1-S2 no S3-S4 no heave or thrill or rub or gallop RESPIRATORY: No accessory muscle use. Rhonchi and wheezes throughout all lung moreno, breath sounds equal bilaterally. GASTROINTESTINAL: Abdomen soft, non-tender, nondistended. Hepatic and splenic margins not palpable. Obese MUSCULOSKELETAL: Extremities without clubbing, cyanosis, or edema. No obvious deformities. NEUROLOGICAL: Awake and alert. No obvious cranial nerve deficits. Motor grossly within normal limits. Five out of 5 muscle strength in the arms and legs. Normal speech. PSYCHIATRIC: Appropriate mood and affect; insight and judgment normal. Procedures NONE Medications and IVs Current Medications Sodium Chloride (NS Flush) 2 ml UNSCH PRN IVF FLUSH AFTER USING IV ACCESS Last administered on 01/09/18at 20:45; Start 01/09/18 at 20:45; Stop 01/10/18 at 00:59 ; Status DC Methylprednisolone Sodium Succinate (SoluMEDROL INJ) 125 mg ONCE ONCE IV PUSH Last administered on 01/09/18at 20:45; Start 01/09/18 at 20:45; Stop 01/09/18 at 20:46; Status DC Albuterol/ Ipratropium (Duoneb Neb) 1 ampule Q15M INH Last administered on 01/09at 20:41; Start 01/09/18 at 20:45; Stop 01/09/18 at 21:16; Status DC Albuterol/ Ipratropium (Duoneb Neb) 1 ampule Q15M INH Last administered on 01/09at 21:23; Start 01/09/18 at 21:30; Stop 01/09/18 at 22:01; Status DC Levofloxacin/ Dextrose 150 ml @ 100 mls/hr ONCE ONCE IV Last administered on 01/09/18at 21:42; Start 01/09/18 at 21:30; Stop 01/09/18 at 22:59; Status DC Sodium Chloride 500 ml @ 500 mls/hr BOLUS ONCE IV Last administered on at 21:42; Start 01/09/18 at 21:30; Stop 01/09/18 at 22:29; Status DC Lorazepam (Ativan Inj) 1 mg ONCE ONCE IV PUSH Last administered on 01/09/18at 21:42; Start 01/09/18 at 21:30; Stop 01/09/18 at 21:31; Status DC Iohexol (Omnipaque 350 Inj) 75 ml STK-MED ONCE IVCONTRAST Last administered on 01/09/18at 23:10; Start 01/09/18 at 23:10; Stop 01/09/18 at 23:11; Status DC Levofloxacin/ Dextrose 150 ml @ 100 mls/hr Q24H IV ; Start 01/10/18 at 21:00 Sodium Chloride (NS Flush) 2 ml BID IV FLUSH Last administered on 01/10/18at 09: 00; Start 01/10/18 at 09:00 Sodium Chloride (NS Flush) 2 ml UNSCH PRN IV FLUSH FLUSH AFTER USING IV ACCESS ; Start 01/10/18 at 01:00 Albuterol/ Ipratropium (Duoneb Neb) 1 ampule Q4HR NEB INH Last administered on 01/10/18at 12:51; Start 01/10/18 at 04:00 Albuterol Sulfate (Albuterol Neb) 2.5 mg Q2HR NEB PRN INH SHORTNESS OF BREATH; Start 01/10/18 at 01:00 Methylprednisolone Sodium Succinate (SoluMEDROL INJ) 60 mg Q6H IV PUSH Last administered on 01/10/18at 06:29; Start 01/10/18 at 01:00 Lorazepam (Ativan Inj) 1 mg Q4H PRN IV PUSH anxiety Last administered on at 01:43; Start 01/10/18 at 01:00 Pravastatin Sodium (Pravachol) 10 mg DAILY PO Last administered on 01/10/18at 09 :00; Start 01/10/18 at 09:00 Tiotropium [place] (Spiriva Inh) 18 mcg DAILY INH Last administered on at 09:00; Start 01/10/18 at 09:00 Non-Formulary Medication 1 puff BID INH ; Start 01/10/18 at 09:00; Stop at 09:00; Status DC Budesonide/ Formoterol Fumarate (Symbicort 80-4.5 Mcg Inh) 2 puff BID INH Last administered on 01/10/18at 09:00; Start 01/10/18 at 09:00 Potassium Chloride (KCl) 40 meq ONCE ONCE PO Last administered on 01/10/18at 06 :28; Start 01/10/18 at 01:45; Stop 01/10/18 at 01:53; Status DC Guaifenesin (Mucinex Er) 600 mg BID PO ; Start 01/10/18 at 13:15 A/P Assessment and Plan 1. COPD exacerbation/pneumonia CTA significant for diffuse infiltrates infectious versus inflammatory, personally reviewed ABG 7.2 / Levaquin -patient with increased sputum production and cough with fever/chills IV steroids Patient's relief captain, Dr. Elliott consulted, appreciate recommendations Duo nebs Continue home inhalers BiPAP -wean as tolerated Add incentive spirometry Add Mucinex Duo nebs 2. Anxiety Ativan as needed 3. Hyperlipidemia Continue home statin Hypokalemia will replace Tobacco abuse recommend smoking cessation A.m. labs Await pulmonary consultation Discharge Planning Pending improvement of breathing Michele Worrell DO Jan 10, 2018 14:30
[2018-01-10] MEDS: guaiFENesin E.R. 600 MG TAB PO SCH ×2 (18:01→20:42)
[2018-01-10] MEDS: LEVOFLOXACIN 750 MG PREMIX INJ 150 ML IV SCH (20:42)
--- NOTE | 2018-01-10 22:41 | EKG ---
Date Performed: 01/09/2018 Time Performed: 21:38:15 PTAGE: 57 years EKG: SINUS TACHYCARDIA ST DEVIATION AND MODERATE T-WAVE ABNORMALITY ABNORMAL ECG PREVIOUS TRACING : 04/26/2016 16.18 Since the previous tracing, no significant change noted DOCTOR: Evette Fuentes Interpretating Date/Time 01/10/2018 22:40:40
[2018-01-11] VITALS (20 sets, daily range): BP systolic 120–150; BP diastolic 45–84; PULSE 92–108; RESP 16–42; TEMP 97.6–97.9; O2SAT 94–100
[2018-01-11] MEDS: methylPREDNISolone SOD SUCC 125 MG/2 ML VIAL IV PUSH SCH ×2 (01:12→07:53)
[2018-01-11] MEDS: LORazepam 2 MG/ML VIAL IV PUSH PRN (01:13)
[2018-01-11] MEDS: RESP: ALBUTEROL 2.5 MG/IPRATROPIUM 0.5 MG NEB (SCH) INH ×6 (03:25→23:58)
[2018-01-11 06:23] LABS: AUTOMATED NEUTROPHIL # 22.8 TH/MM3 (1.8-7.7); BASOPHIL % 0.1 % (0.0-2.0); HEMATOCRIT 33.5 % (35.0-46.0); HEMOGLOBIN 11.6 GM/DL (11.6-15.3); LYMPH % 2.5 % (9.0-44.0); LYMPHOCYTE # 0.6 TH/MM3 (1.0-4.8); MEAN CELL VOLUME 90.4 FL (80.0-100.0); MEAN CORPUSCULAR HEMOGLOBIN 31.4 PG (27.0-34.0); MEAN CORPUSCULAR HGB CONC 34.7 % (32.0-36.0); MEAN PLATELET VOLUME 8.1 FL (7.0-11.0); MONO % 4.5 % (0.0-8.0); MONOCYTE # 1.1 TH/MM3 (0-0.9); NEUT % 92.9 % (16.0-70.0); PLATELET COUNT 355 TH/MM3 (150-450); WHITE BLOOD COUNT 24.5 TH/MM3 (4.0-11.0)
[2018-01-11 06:51] LABS: ALBUMIN 3.2 GM/DL (3.4-5.0); AST (GOT) 77 U/L (15-37); BLOOD UREA NITROGEN 18 MG/DL (7-18); CALCIUM 9.3 MG/DL (8.5-10.1); CHLORIDE 105 MEQ/L (98-107); CREATININE 0.89 MG/DL (0.50-1.00); GLOMERULAR FILTRATION RATE 66 ML/MIN (>89); GLUCOSE,RANDOM 142 MG/DL (74-106); MAGNESIUM 2.8 MG/DL (1.5-2.5); SODIUM (NA) 141 MEQ/L (136-145)
[2018-01-11 07:06] LABS: ALKALINE PHOSPHATASE 133 U/L (45-117); ALT (GPT) 82 U/L (10-53); FREE T4 1.24 NG/DL (0.76-1.46); PHOSPHORUS 3.1 MG/DL (2.5-4.9); TOTAL BILIRUBIN ADULT 0.4 MG/DL (0.2-1.0); TOTAL PROTEIN 7.4 GM/DL (6.4-8.2)
[2018-01-11] MEDS: TIOTROPIUM BROMIDE 18 MCG INH INH SCH (08:04)
[2018-01-11] MEDS: guaiFENesin E.R. 600 MG TAB PO SCH ×2 (08:06→22:19)
[2018-01-11] MEDS: PRAVASTATIN SOD 10 MG TAB PO SCH (08:06)
[2018-01-11] MEDS: PANTOPRAZOLE SOD 40 MG DELAYED RELEASE TAB PO SCH (08:06)
[2018-01-11] MEDS: BUDESONIDE-FORMOTEROL 80/4.5 MCG INHALER INH SCH (08:07)
[2018-01-11] MEDS: SODIUM CHLORIDE 0.9% FLUSH 10 ML FLUSH IV FLUSH SCH ×2 (08:08→22:20)
--- NOTE | 2018-01-11 09:43 | MB ---
cc: Macario Elliott MD DATE: 01/10/2018 REQUESTING PHYSICIAN: Dr. Tez Worrell REASON FOR CONSULTATION: COPD exacerbation, pneumonia. HISTORY OF PRESENT ILLNESS: Ms. Phelan is a 57-year-old female with COPD, nicotine use, anxiety disorder and PTSD. She was complaining of shortness of breath. She was given a Z-DANN. She took 3 days of a Z-Dann and then called office that she was not doing well. She was advised to come to the emergency room. She waited for 1 day and then decided to come to the emergency room. Her said that the next day, she did have fever and she was brought in, has cough, a small amount of sputum production. No chest pain. The patient was worked up in the hospital. She had a chest x-ray done, which showed no acute infiltrate. CT of the chest shows no pulmonary emboli and had diffuse bilateral reticulonodular infiltrate. LABORATORY: Her CBC showed WBC count 20.3, hemoglobin 13.6, hematocrit 40.1, MCV 90, platelet count 378. Sodium 140, potassium 3.0, chloride 100, CO2 25, BUN 7, creatinine 0.75. Blood gas pH 7.26, pCO2 of 55, pO2 99, bicarbonate 24, on 60% BiPAP. The patient has refused to use the BiPAP. After a long discussion with her , she finally agrees if needed, she will try to use it. PAST MEDICAL HISTORY: Significant for history of COPD, nicotine use, anxiety disorder, PTSD, hyperlipidemia, cholecystectomy, . MEDICATIONS: 1. She is currently taking Levaquin 750 mg a day. 2. Protonix 40 mg a day. 3. Mucinex 600 mg twice a day. 4. Pravastatin 10 mg a day. 5. Spiriva once a day. 6. Symbicort 80/4.5 two puffs twice a day. 7. Albuterol nebulizer treatments. 8. Solu-Medrol 60 mg every 6 hours. 9. Lorazepam 1 mg every 4 hours. ALLERGIES: NO KNOWN DRUG ALLERGIES. SOCIAL HISTORY: She is , has history of smoking. FAMILY HISTORY: Noncontributory. REVIEW OF SYSTEMS: She has shortness of breath, congestion in her chest, not able to bring up phlegm until today. PHYSICAL EXAMINATION: GENERAL: WBWN very anxious female, gets anxious and angry. VITAL SIGNS: Blood pressure 143/78, heart rate 100, respirations 26, temperature 97.4. HEENT: Pupils are equal and reactive to light. Oral mucosa and nasal mucosa normal. NECK: Supple. JVD not raised. CHEST: Scattered rhonchi. CARDIOVASCULAR: S1, S2 normal. ABDOMEN: Soft, nondistended. Bowel sounds are present. EXTREMITIES: No edema. IMPRESSION: 1. Chronic obstructive pulmonary disease with exacerbation. 2. Bilateral diffuse reticulonodular infiltrate, possible atypical pneumonia. 3. Anxiety disorder. 4. Hypercapnic respiratory insufficiency. PLAN: We will continue antibiotic, Levaquin. Check her cultures. IV Solu-Medrol. Supplement oxygen to keep the saturation between 88% and 92%. I discussed with the patient and her . I advised her to use BiPAP to avoid intubation. She is very reluctant and angry and finally agrees she will do whatever needs to be done. We will check a culture. Adjust antibiotic. Further treatment will depend on course in the hospital. Thank you, Dr. Worrell, for this consult. MD JACQUELIN Sears/ROMY , 08:30 PM , 08:53 PM JOAQUÍN
[2018-01-11] MEDS ORDERED: PNEUMOCOCCAL POLYVALENT INJ 25 MCG/0.5 ML SYR IM ONE (10:00)
[2018-01-11] MEDS ORDERED: INFLUENZA VIRUS VACCINE (QUADRIVALENT) 0.5 ML SYR IM ONE (10:00)
[2018-01-11] MEDS: RESP: BUDESONIDE 0.5 MG/2 ML NEB NEB SCH ×2 (11:15→19:52)
[2018-01-11 11:36] LABS: AMORPHOUS SEDIMENT, URINE OCC; BILIRUBIN, URINE NEG (NEG); BLOOD, URINE NEG (NEG); GLUCOSE,URINE NEG (NEG); HYALINE CAST, URINE 3 /lpf (RARE); KETONE, URINE NEG (NEG); MUCUS URINE FEW /lpf (OCC); NITRITE,URINE NEG (NEG); PH, URINE 6.5 (5.0-8.5); SQUAMOUS EPITHELIAL CELL URINE <1 /hpf (0-5); URINE COLOR YELLOW (YELLW/STRAW); URINE LEUKOCYTE ESTERASE NEG (NEG)
[2018-01-11] MEDS ORDERED: methylPREDNISolone SOD SUCC 125 MG/2 ML VIAL IM ONE (15:45)
[2018-01-11] MEDS ORDERED: methylPREDNISolone SOD SUCC 125 MG/2 ML VIAL IV PUSH SCH (16:00)
--- NOTE | 2018-01-11 16:08 | HHI.PR ---
Subjective Remarks 57 YOWF with COPD exac, Bilat diffuse infilt, Anxiety Used CPAP briefly, does't like using it C02 improved Still sob and wheezing but feels better Solumedrol increased Objective Vital Signs Vital Signs Date Time Temp Pulse Resp B/P (MAP) Pulse Ox O2 Delivery O2 Flow Rate FiO2 01/11/18 12:00 97.9 98 40 134/80 (98) 100 01/11/18 08:00 105 01/11/18 08:00 97.6 108 42 150/78 (102) 95 01/11/18 07:50 97 Venturi Mask 6.00 35 01/11/18 05:28 102 40 120/45 (70) 99 01/11/18 04:00 104 01/11/18 03:26 98 BiPAP 35 01/11/18 02:00 98 35 01/11/18 02:00 106 01/11/18 01:12 94 Venturi Mask 3.00 31 01/11/18 01:00 100 01/11/18 00:00 99 40 129/77 (94) 95 01/11/18 00:00 101 01/10/18 23:40 91 21 01/10/18 22:00 96 01/10/18 21:00 100 01/10/18 20:52 111 01/10/18 20:28 100 28 130/75 (93) 96 01/10/18 19:12 26 26 92 Nasal Cannula 3.00 01/10/18 19:11 100 26 143/78 (99) 94 Nasal Cannula 3.00 01/10/18 17:50 97.4 101 28 132/73 (92) 94 Nasal Cannula 3.00 01/10/18 17:00 96 20 146/78 (100) 99 I/O 01/10/18 01/10/18 01/10/18 01/11/18 01/11/18 01/11/18 07:00 15:00 23:00 07:00 15:00 23:00 Intake Total 650 ml 240 ml Balance 650 ml 240 ml Intake Oral 240 ml IV Total 650 ml # Voids 2 1 2 6 Result Diagram: 01/11/1860001/11/18600 Objective Remarks GENERAL: WBWn female, sob SKIN: Warm and dry. HEAD: Normocephalic. EYES: No scleral icterus. No injection or drainage. NECK: Supple, trachea midline. No JVD or lymphadenopathy. CARDIOVASCULAR: Regular rate and rhythm without murmurs, gallops, or rubs. RESPIRATORY: Breath sounds equal bilaterally. No accessory muscle use. Exp rhonchi GASTROINTESTINAL: Abdomen soft, non-tender, nondistended. MUSCULOSKELETAL: No cyanosis, or edema. BACK: Nontender without obvious deformity. No CVA tenderness. A/P Assessment and Plan IMPRESSION: 1. Chronic obstructive pulmonary disease with exacerbation. 2. Bilateral diffuse reticulonodular infiltrate, possible atypical pneumonia. 3. Anxiety disorder. 4. Hypercapnic respiratory insufficiency. PLAN: IV Solumedrol 125 mg q 6 hrs cont Levaquin Aerosol nebs SQ Heparin Legionela, Pneumococcal ag Sputum C/S Ativan prn CPAP prn if pt agrees Macario Elliott MD Jan 11, 2018 16:08
[2018-01-11 17:57] LABS: HEMOGLOBIN A1C 5.1 % (4.3-6.0)
--- NOTE | 2018-01-11 18:24 | HHI.PR ---
Subjective Remarks Patient is here with COPD exacerbation, she seems to have fairly poor insight into how serious her condition actually is. After detailed explanation she has stopped talking about leaving the hospital and treating herself at home. Objective Vitals Vital Signs Date Time Temp Pulse Resp B/P (MAP) Pulse Ox O2 Delivery O2 Flow Rate FiO2 01/11/18 16:00 92 40 135/84 (101) 95 01/11/18 16:00 97 01/11/18 12:00 99 01/11/18 12:00 97.9 98 40 134/80 (98) 100 01/11/18 08:00 105 01/11/18 08:00 97.6 108 42 150/78 (102) 95 01/11/18 07:50 97 Venturi Mask 6.00 35 01/11/18 05:28 102 40 120/45 (70) 99 01/11/18 04:00 104 01/11/18 03:26 98 BiPAP 35 01/11/18 02:00 98 35 01/11/18 02:00 106 01/11/18 01:12 94 Venturi Mask 3.00 31 01/11/18 01:00 100 01/11/18 00:00 99 40 129/77 (94) 95 01/11/18 00:00 101 01/10/18 23:40 91 21 01/10/18 22:00 96 01/10/18 21:00 100 01/10/18 20:52 111 01/10/18 20:28 100 28 130/75 (93) 96 01/10/18 19:12 26 26 92 Nasal Cannula 3.00 01/10/18 19:11 100 26 143/78 (99) 94 Nasal Cannula 3.00 I/O 01/10/18 01/10/18 01/10/18 01/11/18 01/11/18 01/11/18 07:00 15:00 23:00 07:00 15:00 23:00 Intake Total 650 ml 240 ml Balance 650 ml 240 ml Intake Oral 240 ml IV Total 650 ml # Voids 2 1 2 6 5 Result Diagram: 01/11/1860001/11/18600 Objective Remarks GENERAL: Obese patient, sitting upright, labored breathing, Venturi mask SKIN: Warm and dry. HEAD: Normocephalic. EYES: No scleral icterus. No injection or drainage. NECK: Supple, trachea midline. No JVD or lymphadenopathy. CARDIOVASCULAR: Tachycardia without murmurs, gallops, or rubs. RESPIRATORY: Tight breath sounds with rales and wheezing bilaterally. Poor air exchange overall. Sitting upright in bed, labored, high flow oxygen mask GASTROINTESTINAL: Abdomen soft, non-tender, nondistended. EXTREMITIES: No cyanosis, or edema. NEUROLOGICAL: Awake, alert, and oriented x 3. Non-focal. Procedures NONE A/P Problem List: (1) COPD exacerbation ICD Code: J44.1 - Chronic obstructive pulmonary disease with (acute) exacerbation Status: Acute (2) Cough ICD Code: R05 - Cough Status: Acute Assessment and Plan COPD exacerbation/pneumonia Initial ABG 7.2 / CT shows diffuse infiltrates Levaquin 750 mg IV daily Solu-Medrol 125 mg IV every 6 hours, IM ordered due to no IV access Scheduled duo nebs, scheduled budesonide via nebulizer Patient refusing BiPAP Appreciate pulmonology consult Anxiety Ativan as needed Hyperlipidemia Continue home statin Tobacco abuse smoking cessation DVT prophylaxis Heparin Haris Ordonez MD Jan 11, 2018 18:24
[2018-01-11] MEDS: LEVOFLOXACIN 750 MG PREMIX INJ 150 ML IV SCH (22:21)
[2018-01-11] MEDS: HEPARIN SODIUM - SQ 10,000 UNITS/ML VIAL SQ SCH (22:21)
[2018-01-12] VITALS (16 sets, daily range): BP systolic 116–141; BP diastolic 63–82; PULSE 74–90; RESP 22–28; TEMP 97.9–98.7; O2SAT 93–98
[2018-01-12] MEDS: methylPREDNISolone SOD SUCC 125 MG/2 ML VIAL IV PUSH SCH ×4 (01:30→22:47)
[2018-01-12] MEDS: RESP: ALBUTEROL 2.5 MG/IPRATROPIUM 0.5 MG NEB (SCH) INH ×5 (03:42→21:19)
[2018-01-12] MEDS: RESP: BUDESONIDE 0.5 MG/2 ML NEB NEB SCH ×2 (07:38→21:24)
[2018-01-12] MEDS: PRAVASTATIN SOD 10 MG TAB PO SCH (08:42)
[2018-01-12] MEDS: PANTOPRAZOLE SOD 40 MG DELAYED RELEASE TAB PO SCH (08:42)
[2018-01-12] MEDS: guaiFENesin E.R. 600 MG TAB PO SCH ×2 (08:42→21:30)
[2018-01-12] MEDS: TIOTROPIUM BROMIDE 18 MCG INH INH SCH (08:43)
[2018-01-12] MEDS: SODIUM CHLORIDE 0.9% FLUSH 10 ML FLUSH IV FLUSH SCH ×2 (08:43→21:31)
[2018-01-12] MEDS: HEPARIN SODIUM - SQ 10,000 UNITS/ML VIAL SQ SCH ×2 (08:44→21:31)
[2018-01-12] MEDS ORDERED: ALPRAZolam 0.5 MG TAB PO PRN (09:15)
--- NOTE | 2018-01-12 15:38 | PQ ---
Physician Query Response Document PATIENT: ROSAURA GUERIN : 1960 ADMIT DATE: 01/09/2018 11:18 PM DISCH DATE: RESPONDING PROVIDER #: simona QUERY TEXT: CDS Clarification Acute respiratory failure with hypoxia POA w increasing shortness of breath RA sats 56% HR 130s requi ring BIPAP, IV steroids in the setting of PNA and COPD exacerbation. Other explanation of clinical findings. Unable to determine (no explanation for clinical findings). The medical record reflects the following clinical findings, treatment, and risk factors. * Clinical Indicators increasing shortness of breath RA sats 56% HR 130s * Risk Factors COPD PNA * Treatment BIPAP, IV steroids Duo nebs, inhalers, Pulmonary consult The patient's Clinical Indicators include: Please clarify and document your clinical opinion in the progress notes and discharge summary includi ng the definitive and/or presumptive diagnosis (suspected or probable), related to the above clinical findings. Please include clinical findings supporting your diagnosis. Thank you, Palma Goldstein CDS: Palma Goldstein Contact Number: CDS/RN ext. [phone] Room: 249 Patient Unit: [facility] Query created by: Palma Goldstein on 01/11/2018 3:30 PM RESPONSE TEXT: Provider disagreed with this CDI query. She refused BiPAP, it did not remain on long enough to provide her benefit. She improved slowly with standard therapy for COPD Exacerbation. QUERY TEXT: CDS Clarification Sepsis POA in a patient with atypical PNA already on Z - anne-marie prior to admission w increasing dyspnea, WBC 26, HR 132, RR [address] showing Diffuse bilateral reticular nodular infiltrates treated w IV So lumedrol ,Levaquin IV and normal saline IV BOLUS Other explanation of clinical findings. Unable to determine (no explanation for clinical findings). The medical record reflects the following clinical findings, treatment, and risk factors. * Clinical Indicators increasing dyspnea, WBC 26, HR 132, RR 32 Diffuse bilateral reticular nodular i nfiltrates * Risk Factors PNA * Treatment Normal Saline IV BOLUS, IV Solumedrol , IV levaquin The patient's Clinical Indicators include: Please clarify and document your clinical opinion in the progress notes and discharge summary includi ng the definitive and/or presumptive diagnosis (suspected or probable), related to the above clinical findings. Please include clinical findings supporting your diagnosis. Thank you, Palma Goldstein CDS: Palma Goldstein Contact Number: CDS/RN ext. [phone] Room: 249 Patient Unit: [facility] Query created by: Palma Goldstein on 01/11/2018 3:43 PM RESPONSE TEXT: Provider disagreed with this CDI query. WBC Elevation from steroid use, not septic. HR and RR from respiratory distress associated with exace rbation of COPD. Electronically signed by: Haris Ordonez 01/12/2018 3:34 PM
--- NOTE | 2018-01-12 18:00 | HHI.PR ---
Subjective Remarks 57 YOWF with COPD exac, Bilat diffuse infilt, Anxiety Used CPAP briefly, does't like using it C02 improved Feels better, anxious to go home Objective Vital Signs Vital Signs Date Time Temp Pulse Resp B/P (MAP) Pulse Ox O2 Delivery O2 Flow Rate FiO2 01/12/18 16:00 98.3 88 26 136/74 (94) 96 01/12/18 15:00 79 01/12/18 12:00 98.7 88 26 116/76 (89) 95 01/12/18 08:00 97.9 79 28 132/63 (86) 93 01/12/18 07:40 98 Nasal Cannula 3.00 01/12/18 07:00 79 01/12/18 02:00 80 01/12/18 01:00 90 01/12/18 00:00 86 01/12/18 00:00 86 01/11/18 23:00 92 01/11/18 22:00 98 01/11/18 21:23 97.6 97 16 138/74 (95) 100 01/11/18 21:00 102 01/11/18 20:19 96 Nasal Cannula 4.00 01/11/18 20:05 96 01/11/18 20:00 92 01/11/18 19:53 97 Venturi Mask 6.00 35 01/11/18 19:00 94 I/O 01/11/18 01/11/18 01/11/18 01/12/18 01/12/18 01/12/18 07:00 15:00 23:00 07:00 15:00 23:00 Intake Total 240 ml 360 ml 480 ml Output Total 1 ml Balance 240 ml 360 ml 479 ml Intake Oral 240 ml 360 ml 480 ml Output Stool Total 1 ml # Voids 6 5 6 3 Result Diagram: 01/11/1860001/11/18600 Objective Remarks GENERAL: WBWn female, sob SKIN: Warm and dry. HEAD: Normocephalic. EYES: No scleral icterus. No injection or drainage. NECK: Supple, trachea midline. No JVD or lymphadenopathy. CARDIOVASCULAR: Regular rate and rhythm without murmurs, gallops, or rubs. RESPIRATORY: Breath sounds equal bilaterally. No accessory muscle use. Exp rhonchi GASTROINTESTINAL: Abdomen soft, non-tender, nondistended. MUSCULOSKELETAL: No cyanosis, or edema. BACK: Nontender without obvious deformity. No CVA tenderness. A/P Assessment and Plan IMPRESSION: 1. Chronic obstructive pulmonary disease with exacerbation. 2. Bilateral diffuse reticulonodular infiltrate, possible atypical pneumonia. 3. Anxiety disorder. 4. Hypercapnic respiratory insufficiency. PLAN: cont Levaquin Aerosol nebs SQ Heparin Ativan prn CPAP prn if pt agrees Decrease Solumedrol 60 mg q 6 hrs EVERARDO MCGEE pt and her at Macario Elliott MD Jan 12, 2018 18:00
--- NOTE | 2018-01-12 18:48 | HHI.PR ---
Subjective Remarks Patient states that she feels improvement in her breathing. She wants to go home. Objective Vitals Vital Signs Date Time Temp Pulse Resp B/P (MAP) Pulse Ox O2 Delivery O2 Flow Rate FiO2 01/12/18 16:00 98.3 88 26 136/74 (94) 96 01/12/18 15:00 79 01/12/18 12:00 98.7 88 26 116/76 (89) 95 01/12/18 08:00 97.9 79 28 132/63 (86) 93 01/12/18 07:40 98 Nasal Cannula 3.00 01/12/18 07:00 79 01/12/18 02:00 80 01/12/18 01:00 90 01/12/18 00:00 86 01/12/18 00:00 86 01/11/18 23:00 92 01/11/18 22:00 98 01/11/18 21:23 97.6 97 16 138/74 (95) 100 01/11/18 21:00 102 01/11/18 20:19 96 Nasal Cannula 4.00 01/11/18 20:05 96 01/11/18 20:00 92 01/11/18 19:53 97 Venturi Mask 6.00 35 01/11/18 19:00 94 I/O 01/11/18 01/11/18 01/11/18 01/12/18 01/12/18 01/12/18 07:00 15:00 23:00 07:00 15:00 23:00 Intake Total 240 ml 360 ml 480 ml Output Total 1 ml Balance 240 ml 360 ml 479 ml Intake Oral 240 ml 360 ml 480 ml Output Stool Total 1 ml # Voids 6 5 6 3 Result Diagram: 01/11/1860001/11/18600 Objective Remarks GENERAL: Obese patient, breathing more comfortably today but only approximately 30% improved, still very tight, wheezing SKIN: Warm and dry. HEAD: Normocephalic. EYES: No scleral icterus. No injection or drainage. NECK: Supple, trachea midline. No JVD or lymphadenopathy. CARDIOVASCULAR: Tachycardia without murmurs, gallops, or rubs. RESPIRATORY: Better air passage today, still wheezing bilaterally. No crackles appreciated GASTROINTESTINAL: Abdomen soft, non-tender, nondistended. EXTREMITIES: No cyanosis, or edema. NEUROLOGICAL: Awake, alert, and oriented x 3. Non-focal. Procedures NONE A/P Problem List: (1) COPD exacerbation ICD Code: J44.1 - Chronic obstructive pulmonary disease with (acute) exacerbation Status: Acute (2) Cough ICD Code: R05 - Cough Status: Acute Assessment and Plan COPD exacerbation/pneumonia Initial ABG 7.2 / CT shows nodular infiltrates Continue Levaquin 750 mg IV daily Solu-Medrol 125 mg IV every 6 hours Scheduled duo nebs, scheduled budesonide via nebulizer Patient tolerating nasal cannula O2, maintaining saturations in the 90s Oxygen walk test ordered Appreciate pulmonology consult Anxiety Ativan change to Xanax Hyperlipidemia Continue home statin Tobacco abuse smoking cessation DVT prophylaxis Heparin Haris Ordonez MD Jan 12, 2018 18:48
[2018-01-12 20:20] LABS: BILIRUBIN, URINE NEG (NEG); BLOOD, URINE NEG (NEG); GLUCOSE,URINE NEG (NEG); KETONE, URINE NEG (NEG); MUCUS URINE FEW /lpf (OCC); NITRITE,URINE NEG (NEG); PH, URINE 6.5 (5.0-8.5); SQUAMOUS EPITHELIAL CELL URINE 1 /hpf (0-5); URINE COLOR LIGHT-YELLOW (YELLW/STRAW); URINE LEUKOCYTE ESTERASE NEG (NEG)
[2018-01-12] MEDS: NYSTATIN SUSP 500,000 U/5 ML CUP SWISH-SWAL SCH (21:31)
[2018-01-12] MEDS: LEVOFLOXACIN 750 MG PREMIX INJ 150 ML IV SCH (21:31)
[2018-01-13] VITALS (20 sets, daily range): BP systolic 118–143; BP diastolic 69–87; PULSE 67–104; RESP 16–21; TEMP 97.9–98.4; O2SAT 90–96
[2018-01-13] MEDS: RESP: ALBUTEROL 2.5 MG/IPRATROPIUM 0.5 MG NEB (SCH) INH ×5 (00:11→15:40)
--- NOTE | 2018-01-13 10:09 | HHI.PR ---
Subjective Remarks Patient is lying in bed in NAD. Objective Vital Signs Vital Signs Date Time Temp Pulse Resp B/P (MAP) Pulse Ox O2 Delivery O2 Flow Rate FiO2 01/13/18 09:00 74 01/13/18 09:00 95 Nasal Cannula 1.00 01/13/18 08:00 98.4 74 18 132/82 (99) 95 01/13/18 08:00 75 01/13/18 07:16 96 Nasal Cannula 2.00 01/13/18 07:00 95 Nasal Cannula 2.00 01/13/18 07:00 74 01/13/18 06:09 83 01/13/18 05:12 71 01/13/18 04:35 81 01/13/18 04:35 97.9 85 18 128/69 (88) 92 01/13/18 03:05 71 01/13/18 02:12 70 01/13/18 01:54 71 01/13/18 00:18 98.1 83 21 130/87 (101) 94 01/13/18 00:18 84 01/13/18 00:14 90 21 01/12/18 23:55 83 01/12/18 22:35 84 01/12/18 21:11 74 01/12/18 20:20 98.3 78 22 141/82 (101) 94 01/12/18 20:15 95 21 01/12/18 20:00 86 01/12/18 19:36 81 01/12/18 16:00 98.3 88 26 136/74 (94) 96 01/12/18 15:00 79 01/12/18 12:00 98.7 88 26 116/76 (89) 95 I/O 01/12/18 01/12/18 01/12/18 01/13/18 01/13/18 01/13/18 07:00 15:00 23:00 07:00 15:00 23:00 Intake Total 360 ml 480 ml 240 ml Output Total 1 ml 600 ml Balance 360 ml 479 ml -360 ml Intake Oral 360 ml 480 ml 240 ml Output Urine Total 600 ml Stool Total 1 ml # Voids 6 3 Result Diagram: 01/11/18 0601 01/11/18 0601 Other Results Last Impressions CT Angiography 01/09/18 2229 Signed Impressions: Service Date/Time: Tuesday, January 09, 2018 23:05 - CONCLUSION: Diffuse bilateral reticular nodular infiltrates, likely infectious or inflammatory. No lobar consolidation. No pulmonary embolus. Umer Clark MD Chest X-Ray 01/09/182031 Signed Impressions: Service Date/Time: Tuesday, January 09, 2018 20:44 - CONCLUSION: No acute disease. Raffy Shepherd MD Objective Remarks GENERAL: Patient is 57yo lying in bed in NAD SKIN: Warm and dry. HEAD: Normocephalic. EYES: No scleral icterus. No injection or drainage. NECK: Supple, trachea midline. No JVD or lymphadenopathy. CARDIOVASCULAR: Regular rate and rhythm without murmurs, gallops, or rubs. RESPIRATORY: Breath sounds equal bilaterally. No accessory muscle use. GASTROINTESTINAL: Abdomen soft, non-tender, nondistended. MUSCULOSKELETAL: No cyanosis, or edema. Neuro: Awake and alert A/P Assessment and Plan 1)Resp Insuff 2)COPD with exacerbation. 3)Bilateral diffuse reticulonodular infiltrate, possible atypical pneumonia. 4)Anxiety disorder. 5)Leukocytosis 6)Elevated LFT PLAN: Continue with oxygen keep sats >92% Bronchodilators 6 min walk test to asses the need for home oxygen prior to discharge Cont Levaquin and monitor for signs of infections ( Fever, WBC) Sputum cx 01/11: normal resp andres Strep pneumonia and Legionella urinary ag negative on 01/11 Taper IV steroids- on solumederol 60mg Q8 Repeat CT chest in 4 weeks as outpatient Will need fto follow up with Dr. Elliott 1 week from discharge GI/DVT prophylaxis- per primary team. Mayelin Valles MD Jan 13, 2018 10:09
[2018-01-13] MEDS: TIOTROPIUM BROMIDE 18 MCG INH INH SCH (10:15)
[2018-01-13] MEDS: methylPREDNISolone SOD SUCC 125 MG/2 ML VIAL IV PUSH SCH ×2 (10:16→16:17)
[2018-01-13] MEDS: HEPARIN SODIUM - SQ 10,000 UNITS/ML VIAL SQ SCH (10:16)
[2018-01-13] MEDS: PANTOPRAZOLE SOD 40 MG DELAYED RELEASE TAB PO SCH (10:17)
[2018-01-13] MEDS: guaiFENesin E.R. 600 MG TAB PO SCH (10:17)
[2018-01-13] MEDS: PRAVASTATIN SOD 10 MG TAB PO SCH (10:17)
[2018-01-13] MEDS: NYSTATIN SUSP 500,000 U/5 ML CUP SWISH-SWAL SCH ×2 (10:17→12:30)
[2018-01-13] MEDS: SODIUM CHLORIDE 0.9% FLUSH 10 ML FLUSH IV FLUSH SCH (10:18)
[2018-01-13] MEDS: RESP: BUDESONIDE 0.5 MG/2 ML NEB NEB SCH (10:52)
[2018-01-13] MEDS ORDERED: PRED10PA2 PO (16:30)
[2018-01-13] MEDS ORDERED: LEVA500T33 PO (16:30)
[2018-01-13] MEDS ORDERED: predniSONE 50 MG TAB PO ONE (16:30)
[2018-01-13] MEDS ORDERED: Albuterol-Ipratropium Neb INH (16:30)
--- NOTE | 2018-01-13 16:34 | HHI.DS ---
Discharge Summary Admission Date Jan 09, 2018 at 23:18 Discharge Date: Jan 13, 2018 Admitting Diagnosis Copd Exacerbation, hypoxemia (1) COPD exacerbation ICD Code: J44.1 - Chronic obstructive pulmonary disease with (acute) exacerbation Status: Acute (2) Cough ICD Code: R05 - Cough Status: Acute Procedures NONE Brief History - From Admission 57-year-old female with a past medical history significant for COPD, anxiety and hyperlipidemia presents to the emergency department for evaluation of shortness of breath. The patient reports her shortness of breath started on Monday and she called her line repairer, Dr. Elliott who prescribed her a Z- Dann. The patient reports increased cough, fever, chills. She states her shortness of breath continued to worsen. She came to the emergency department for further evaluation. She has labored respirations. Currently refusing BiPAP. Denies chest pain. No nausea/vomiting/diarrhea. No abdominal pain. No weakness/fatigue. No lateralizing signs/symptoms. CBC/BMP: 01/11/18 0601 01/11/18 0601 Significant Findings Laboratory Tests Test 01/11/18 06:01 01/11/18 11:11 01/11/18 11:45 01/12/18 19:53 White Blood Count 24.5 TH/MM3 (4.0-11.0) Red Blood Count 3.70 MIL/MM3 (4.00-5.30) Hematocrit 33.5 % (35.0-46.0) Neutrophils (%) (Auto) 92.9 % (16.0-70.0) Lymphocytes (%) (Auto) 2.5 % (9.0-44.0) Neutrophils # (Auto) 22.8 TH/MM3 (1.8-7.7) Lymphocytes # (Auto) 0.6 TH/MM3 (1.0-4.8) Monocytes # (Auto) 1.1 TH/MM3 (0-0.9) Random Glucose 142 MG/DL (74-106) Albumin 3.2 GM/DL (3.4-5.0) Magnesium Level 2.8 MG/DL (1.5-2.5) Alkaline Phosphatase 133 U/L (45-117) Aspartate Amino Transf (AST/SGOT) 77 U/L (15-37) Alanine Aminotransferase (ALT/SGPT) 82 U/L (10-53) Estimat Glomerular Filtration Rate 66 ML/MIN (>89) Thyroid Stimulating Hormone 3rd Gen 0.126 uIU/ML (0.358-3.740) Urine Mucus FEW /lpf (OCC) FEW /lpf (OCC) Arterial Blood Partial Pressure CO2 44 mmHg (38-42) PE at Discharge GENERAL: Obese patient, breathing more comfortably today but only approximately 30% improved, still very tight, wheezing SKIN: Warm and dry. HEAD: Normocephalic. EYES: No scleral icterus. No injection or drainage. NECK: Supple, trachea midline. No JVD or lymphadenopathy. CARDIOVASCULAR: Tachycardia without murmurs, gallops, or rubs. RESPIRATORY: Better air passage today, still wheezing bilaterally. No crackles appreciated GASTROINTESTINAL: Abdomen soft, non-tender, nondistended. EXTREMITIES: No cyanosis, or edema. NEUROLOGICAL: Awake, alert, and oriented x 3. Non-focal. Hospital Course 57-year-old female who presented to the ER with COPD exacerbation following a bus trip. Both her and her developed upper respiratory infections following this trip. When she presented she was very dyspneic and had failed outpatient therapy with azithromycin and steroid taper along with her home nebulizers. She was placed on Solu-Medrol 125 mg 4 times daily for 2 days along with inhaled budesonide nebulizer, duo nebs and covered with Levaquin. Her respiratory acidosis resolved within 24 hours of admission. She has been asking to go home since her admission and yesterday passed and oxygen walk test. Today her lungs are mostly clear she is approximately 50% better and still asking to go home. I will place her on a prolonged taper of prednisone starting at 60 mg and continue Levaquin for 5 more days. She is instructed to resume her home nebulizers and I have provided her duo nebs for that purpose. She was instructed to return to the ER immediately if her oxygen drops below 90 % at home. She will have a follow-up next week with Dr. Elliott. Pt Condition on Discharge: Good Discharge Disposition: Discharge Home Discharge Time: <= 30 minutes Discharge Instructions DIET: Follow Instructions for: As Tolerated, No Restrictions Activities you can perform: Weight Bearing as Haris Ledezma MD Jan 13, 2018 16:34
[2018-01-13] MEDS ORDERED: NYST1000 SWISH-SWAL (16:35)
== END 2018-01-13 17:31 | disposition home or self-care (01) | DRG 190 ==
LOC: NEPE 20:21 → NEDA 23:18 → NEDH 01-10 03:18 → NEDA 01-10 10:18 → NEDH 01-10 11:02 → HCIS 01-10 20:18
PROVIDERS: ADMIT Family Medicine; ATTEND Family Medicine
PROC: 5A09357 Assistance with Respiratory Ventilation, Less than 24 Consecutive Hours, Continuous Positive Airway Pressure (ICD-10-PCS; principal; 2018-01-09)
DX: J44.1 Chronic obstructive pulmonary disease with (acute) exacerbation (principal); J18.9 Pneumonia, unspecified organism; J44.0 Chronic obstructive pulmonary disease with (acute) lower respiratory infection; E87.2 Acidosis; R09.02 Hypoxemia; R06.89 Other abnormalities of breathing; E78.5 Hyperlipidemia, unspecified; E87.6 Hypokalemia; F41.9 Anxiety disorder, unspecified; F17.210 Nicotine dependence, cigarettes, uncomplicated; E66.9 Obesity, unspecified; Z68.38 Body mass index [BMI] 38.0-38.9, adult; F12.90 Cannabis use, unspecified, uncomplicated; Z23 Encounter for immunization
CPT/HCPCS: 36600; 71045; 71275; 76937; 80053; 81001; 82550; 82552; 82805; 83036; 83605; 83735; 83880; 84100; 84439; 84443; 84484; 85007; 85025; 85027; 85379; 85610; 85730; 87040; 87070; 87205; 87449; 87804; 90732; 93005; 94002; 94003; 94150; 94618; 94640; 94664; 96365; 96366; 96375; J1644; J1956; J2060; J2930; J7040; J7613; J7626; Q9967